=== PATIENT | male | born 1950 | race African-American/Black ===

== ENCOUNTER 2022-10-06 13:16 | Inpatient (IN) | payer OTHER, BC ==
[2022-10-06 13:21] VITALS: BMI 37.2
[2022-10-06] MEDS ORDERED: MEROPENEM 500 MG in DEXTROSE 5%-WATER 100 ML IVPB ONE (14:23)
[2022-10-06] MEDS ORDERED: VANCOMYCIN 1 GM in D5W (PRE-DOCKED) 1,000 MG/250 ML (RESTRICTED TO ID ONLY IVPB ONE (14:24)
[2022-10-06] MEDS ORDERED: MEROPENEM 500 MG VIAL (RESTRICTED TO ID) IVPB ONE (14:43)
[2022-10-06] MEDS ORDERED: VANCOMYCIN/WATER FOR INJ (PEG) 1,000 MG/200 ML BAG IVPB ONE (14:43)
[2022-10-06 15:32] LABS: BASO % 0.5 % (0-2.0); HEMATOCRIT 30.8 % (35.4-49); HEMOGLOBIN 9.9 GM/dL (11.7-16.9); LYMPH % 29.2 % (8-40); MCH 30.1 pg (25.7-33.7); MCHC 32.1 g/dl (32.0-35.9); MEAN CELL VOLUME 93.9 fl (80-96); MEAN PLT VOLUME 6.9 fl (7.5-11.1); MONO % 10.4 % (3.8-10.2); NEUT % 57.9 % (42.8-82.8); PLATELET COUNT 183 10^3/uL (134-434); RBC 3.28 M/mm3 (4.00-5.60); RDW 13.1 % (11.9-15.9); WHITE BLOOD COUNT 3.8 K/mm3 (4.0-10.0)
[2022-10-06 15:38] LABS: INR 1.44 (0.83-1.09); PROTHROMBIN TIME (PATIENT) 16.7 SEC (9.7-13.0)
[2022-10-06 15:40] LABS: ACTIVATED PTT 32.7 SECONDS (25.2-36.5)
[2022-10-06 15:50] LABS: POTASSIUM 3.4 mmol/L (3.5-5.1)
[2022-10-06 15:51] LABS: CALCIUM 9.3 mg/dL (8.5-10.1)
[2022-10-06 15:53] LABS: ALBUMIN 3.6 g/dl (3.4-5.0); BLOOD UREA NITROGEN 13.6 mg/dL (7-18)
[2022-10-06 15:56] LABS: CREATININE 1.1 mg/dL (0.55-1.3)
[2022-10-06 15:58] LABS: BILIRUBIN,TOTAL 0.6 mg/dL (0.2-1); TOT PROT 7.9 g/dl (6.4-8.2)
[2022-10-06] MEDS ORDERED: KETOROLAC TROMETHAMINE 15 MG/ML VIAL IVPUSH PRN (16:03)
[2022-10-06] MEDS ORDERED: POTASSIUM CHLORIDE TABS 20 MEQ TABLET.ER (FP) PO ONE (16:11)
[2022-10-06 16:17] LABS: ERYTHROCYTE SEDIMENTATION RATE 86 mm/hr (0-20)
[2022-10-06] MEDS ORDERED: POTASSIUM CHLORIDE ORAL LIQUID 20 MEQ/15 ML ONE (16:30)
[2022-10-06] MEDS ORDERED: SUBOXONE PO SCH (22:00)
[2022-10-06] MEDS: BUPRENORPHINE/NALOXONE 8 MG/2 MG FILM PACKET SL SCH (23:50)
[2022-10-07] MEDS: HEPARIN NA (PORCINE) 5,000 UNITS/ML 1ML VIAL SQ SCH ×3 (00:26→21:52)
[2022-10-07] MEDS: GABAPENTIN 100 MG CAPSULE PO SCH ×4 (00:26→21:52)
[2022-10-07] MEDS: ATORVASTATIN CA 10 MG TABLET (FP) PO SCH ×2 (00:26→21:52)
[2022-10-07] MEDS: MEROPENEM 1 GM in DEXTROSE 5%-WATER 100 ML IVPB SCH ×5 (03:25→18:09)
[2022-10-07] MEDS ORDERED: VANCOMYCIN 1 GM/200 ML PREMIX BAG (RESTRICTED TO ID ONLY) IVPB SCH (03:30)
[2022-10-07] MEDS: FUROSEMIDE 40 MG TABLET (FP) PO SCH ×2 (06:55→13:07)
[2022-10-07] MEDS: BUPRENORPHINE/NALOXONE 8 MG/2 MG FILM PACKET SL SCH ×3 (06:55→21:52)
[2022-10-07 09:07] LABS: HEMATOCRIT 34.8 % (35.4-49); HEMOGLOBIN 11.1 GM/dL (11.7-16.9); MCHC 31.9 g/dl (32.0-35.9); MEAN PLT VOLUME 7.8 fl (7.5-11.1); PLATELET COUNT 214 10^3/uL (134-434); RDW 13.3 % (11.9-15.9)
[2022-10-07 09:13] LABS: WHITE BLOOD COUNT 7.1 K/mm3 (4.0-10.0)
[2022-10-07 09:29] LABS: POTASSIUM 3.7 mmol/L (3.5-5.1)
[2022-10-07 09:35] LABS: BLOOD UREA NITROGEN 14.3 mg/dL (7-18); CALCIUM 9.3 mg/dL (8.5-10.1)
[2022-10-07 09:39] LABS: CREATININE 1.1 mg/dL (0.55-1.3)
[2022-10-07] MEDS: ASPIRIN 81 MG CHEWABLE TABLETS PO SCH (09:57)
[2022-10-07] MEDS: NIFEdipine E.R 60 MG TABLET PO SCH (09:57)
[2022-10-07] MEDS: ATENOLOL 50 MG TABLET (FP) PO SCH (09:57)
[2022-10-07] MEDS: COLLAGENASE CLOSTRIDIUM HIST. 30 GRAMS TUBE TP SCH (09:58)
[2022-10-07] MEDS ORDERED: VANCOMYCIN 1 GM in D5W (PRE-DOCKED) 1,000 MG/250 ML (RESTRICTED TO ID ONLY IVPB SCH (10:00)
[2022-10-07] MEDS ORDERED: ABACAVIR/DOLUTEGRAVIR/LAMIVUDI (TRIUMEQ) TABLET PO SCH (10:00)
[2022-10-07] MEDS ORDERED: CELECOXIB 200 MG CAPSULE PO SCH (10:00)
[2022-10-07 10:13] LABS: ANISOCYTOSIS 1+; MACROCYTOSIS 0
[2022-10-07] MEDS: VANCOMYCIN PREMIX 1.5 GM 1,500 MG/300 ML BAG IVPB SCH (14:53)
[2022-10-07] MEDS ORDERED: PIPERACILLIN/TAZOB 3.375 GM 3.375 GM in DEXTROSE 5%-WATER - 50 ML IVPB SCH (18:00)
[2022-10-08] MEDS: MEROPENEM 1 GM in DEXTROSE 5%-WATER 100 ML IVPB SCH ×3 (02:50→19:00)
[2022-10-08] MEDS: BUPRENORPHINE/NALOXONE 8 MG/2 MG FILM PACKET SL SCH ×3 (05:50→22:42)
[2022-10-08] MEDS: GABAPENTIN 100 MG CAPSULE PO SCH ×3 (05:50→22:42)
[2022-10-08] MEDS: FUROSEMIDE 40 MG TABLET (FP) PO SCH ×2 (05:50→14:47)
[2022-10-08 09:31] LABS: HEMOGLOBIN 10.2 GM/dL (11.7-16.9); MEAN CELL VOLUME 93.8 fl (80-96); MEAN PLT VOLUME 7.2 fl (7.5-11.1); PLATELET COUNT 203 10^3/uL (134-434); RBC 3.42 M/mm3 (4.00-5.60); RDW 12.9 % (11.9-15.9); WHITE BLOOD COUNT 4.9 K/mm3 (4.0-10.0)
[2022-10-08 10:11] LABS: POTASSIUM 3.7 mmol/L (3.5-5.1)
[2022-10-08 10:14] LABS: BLOOD UREA NITROGEN 18.6 mg/dL (7-18); CALCIUM 9.2 mg/dL (8.5-10.1)
[2022-10-08 10:16] LABS: ALBUMIN 3.3 g/dl (3.4-5.0)
[2022-10-08 10:19] LABS: BILIRUBIN,TOTAL 0.7 mg/dL (0.2-1); CREATININE 1.3 mg/dL (0.55-1.3); TOT PROT 7.4 g/dl (6.4-8.2)
[2022-10-08] MEDS: HEPARIN NA (PORCINE) 5,000 UNITS/ML 1ML VIAL SQ SCH ×2 (10:48→22:42)
[2022-10-08] MEDS: ASPIRIN 81 MG CHEWABLE TABLETS PO SCH (11:48)
[2022-10-08] MEDS: NIFEdipine E.R 60 MG TABLET PO SCH (11:49)
[2022-10-08] MEDS: TAMSULOSIN HCL 0.4 MG CAP PO SCH (11:49)
[2022-10-08] MEDS: ATENOLOL 50 MG TABLET (FP) PO SCH (11:49)
[2022-10-08] MEDS: COLLAGENASE CLOSTRIDIUM HIST. 30 GRAMS TUBE TP SCH (11:49)
[2022-10-08] MEDS: VANCOMYCIN PREMIX 1.5 GM 1,500 MG/300 ML BAG IVPB SCH (18:15)
[2022-10-08] MEDS: ABACAVIR/DOLUTEGRAVIR/LAMIVUDI (TRIUMEQ) TABLET PO SCH (22:42)
[2022-10-08] MEDS: ATORVASTATIN CA 10 MG TABLET (FP) PO SCH (22:42)
[2022-10-09] MEDS: MEROPENEM 1 GM in DEXTROSE 5%-WATER 100 ML IVPB SCH ×3 (02:37→19:08)
[2022-10-09] MEDS: GABAPENTIN 100 MG CAPSULE PO SCH ×3 (06:30→22:03)
[2022-10-09] MEDS: BUPRENORPHINE/NALOXONE 8 MG/2 MG FILM PACKET SL SCH ×3 (06:30→22:03)
[2022-10-09] MEDS: FUROSEMIDE 40 MG TABLET (FP) PO SCH ×2 (06:30→13:41)
[2022-10-09] MEDS: NIFEdipine E.R 60 MG TABLET PO SCH (09:04)
[2022-10-09] MEDS: ASPIRIN 81 MG CHEWABLE TABLETS PO SCH (09:04)
[2022-10-09] MEDS: ATENOLOL 50 MG TABLET (FP) PO SCH (09:05)
[2022-10-09] MEDS: HEPARIN NA (PORCINE) 5,000 UNITS/ML 1ML VIAL SQ SCH ×2 (09:08→22:02)
[2022-10-09] MEDS: TAMSULOSIN HCL 0.4 MG CAP PO SCH (09:08)
[2022-10-09] MEDS: COLLAGENASE CLOSTRIDIUM HIST. 30 GRAMS TUBE TP SCH (09:18)
[2022-10-09 11:44] LABS: HEMATOCRIT 31.1 % (35.4-49); HEMOGLOBIN 10.1 GM/dL (11.7-16.9); MCH 29.8 pg (25.7-33.7); MCHC 32.6 g/dl (32.0-35.9); MEAN CELL VOLUME 91.6 fl (80-96); MEAN PLT VOLUME 7.1 fl (7.5-11.1); PLATELET COUNT 164 10^3/uL (134-434); RBC 3.39 M/mm3 (4.00-5.60); RDW 13.5 % (11.9-15.9)
[2022-10-09 12:13] LABS: POTASSIUM 3.5 mmol/L (3.5-5.1)
[2022-10-09 12:15] LABS: CALCIUM 8.9 mg/dL (8.5-10.1)
[2022-10-09 12:17] LABS: ALBUMIN 3.2 g/dl (3.4-5.0); BLOOD UREA NITROGEN 18.6 mg/dL (7-18)
[2022-10-09 12:18] LABS: CREATININE 1.3 mg/dL (0.55-1.3)
[2022-10-09 12:20] LABS: BILIRUBIN,TOTAL 0.5 mg/dL (0.2-1); TOT PROT 7.3 g/dl (6.4-8.2)
[2022-10-09] MEDS: VANCOMYCIN PREMIX 1.5 GM 1,500 MG/300 ML BAG IVPB SCH (14:13)
[2022-10-09] MEDS: ATORVASTATIN CA 10 MG TABLET (FP) PO SCH (22:03)
[2022-10-09] MEDS: MELATONIN 5 MG TABLETS PO SCH (22:03)
[2022-10-09] MEDS: ABACAVIR/DOLUTEGRAVIR/LAMIVUDI (TRIUMEQ) TABLET PO SCH (22:04)
[2022-10-10] MEDS: MEROPENEM 1 GM in DEXTROSE 5%-WATER 100 ML IVPB SCH ×3 (02:46→18:05)
[2022-10-10] MEDS: BUPRENORPHINE/NALOXONE 8 MG/2 MG FILM PACKET SL SCH ×3 (05:52→22:29)
[2022-10-10] MEDS: GABAPENTIN 100 MG CAPSULE PO SCH ×3 (05:53→22:29)
[2022-10-10] MEDS: FUROSEMIDE 40 MG TABLET (FP) PO SCH ×2 (05:53→13:24)
[2022-10-10] MEDS: TAMSULOSIN HCL 0.4 MG CAP PO SCH (08:35)
[2022-10-10 09:24] LABS: HEMATOCRIT 32.4 % (35.4-49); HEMOGLOBIN 10.7 GM/dL (11.7-16.9); MCH 30.1 pg (25.7-33.7); MCHC 32.9 g/dl (32.0-35.9); MEAN CELL VOLUME 91.4 fl (80-96); MEAN PLT VOLUME 7.1 fl (7.5-11.1); PLATELET COUNT 179 10^3/uL (134-434); RBC 3.54 M/mm3 (4.00-5.60); RDW 13.4 % (11.9-15.9); WHITE BLOOD COUNT 4.6 K/mm3 (4.0-10.0)
[2022-10-10 09:29] LABS: POTASSIUM 3.6 mmol/L (3.5-5.1)
[2022-10-10 09:33] LABS: BLOOD UREA NITROGEN 22.3 mg/dL (7-18); CALCIUM 9.2 mg/dL (8.5-10.1)
[2022-10-10 09:37] LABS: CREATININE 1.4 mg/dL (0.55-1.3)
[2022-10-10] MEDS: ASPIRIN 81 MG CHEWABLE TABLETS PO SCH (10:16)
[2022-10-10] MEDS: ATENOLOL 50 MG TABLET (FP) PO SCH (10:16)
[2022-10-10] MEDS: HEPARIN NA (PORCINE) 5,000 UNITS/ML 1ML VIAL SQ SCH ×2 (10:17→22:28)
[2022-10-10] MEDS: NIFEdipine E.R 60 MG TABLET PO SCH (10:17)
[2022-10-10] MEDS: COLLAGENASE CLOSTRIDIUM HIST. 30 GRAMS TUBE TP SCH (10:17)
[2022-10-10] MEDS: VANCOMYCIN PREMIX 1.5 GM 1,500 MG/300 ML BAG IVPB SCH (15:07)
[2022-10-10] MEDS: ATORVASTATIN CA 10 MG TABLET (FP) PO SCH (22:28)
[2022-10-10] MEDS: MELATONIN 5 MG TABLETS PO SCH (22:29)
[2022-10-10] MEDS: ABACAVIR/DOLUTEGRAVIR/LAMIVUDI (TRIUMEQ) TABLET PO SCH (22:29)
[2022-10-11] MEDS: MEROPENEM 1 GM in DEXTROSE 5%-WATER 100 ML IVPB SCH ×3 (02:00→17:49)
[2022-10-11] MEDS: GABAPENTIN 100 MG CAPSULE PO SCH ×3 (05:40→22:24)
[2022-10-11] MEDS: FUROSEMIDE 40 MG TABLET (FP) PO SCH ×2 (05:40→13:47)
[2022-10-11] MEDS: BUPRENORPHINE/NALOXONE 8 MG/2 MG FILM PACKET SL SCH ×3 (05:40→22:24)
[2022-10-11] MEDS: ASPIRIN 81 MG CHEWABLE TABLETS PO SCH (09:09)
[2022-10-11] MEDS: TAMSULOSIN HCL 0.4 MG CAP PO SCH (09:09)
[2022-10-11] MEDS: HEPARIN NA (PORCINE) 5,000 UNITS/ML 1ML VIAL SQ SCH ×2 (09:58→22:24)
[2022-10-11] MEDS: NIFEdipine E.R 60 MG TABLET PO SCH (10:00)
[2022-10-11] MEDS: ATENOLOL 50 MG TABLET (FP) PO SCH (10:00)
[2022-10-11 10:40] LABS: POTASSIUM 3.6 mmol/L (3.5-5.1)
[2022-10-11 10:43] LABS: BLOOD UREA NITROGEN 29.2 mg/dL (7-18); CALCIUM 9.6 mg/dL (8.5-10.1)
[2022-10-11 10:47] LABS: CREATININE 1.6 mg/dL (0.55-1.3)
[2022-10-11] MEDS: LIDOCAINE 5% TOPICAL PATCH TP SCH (11:37)
[2022-10-11] MEDS: COLLAGENASE CLOSTRIDIUM HIST. 30 GRAMS TUBE TP SCH (11:40)
[2022-10-11] MEDS: ATORVASTATIN CA 10 MG TABLET (FP) PO SCH (22:23)
[2022-10-11] MEDS: MELATONIN 5 MG TABLETS PO SCH (22:23)
[2022-10-11] MEDS: ABACAVIR/DOLUTEGRAVIR/LAMIVUDI (TRIUMEQ) TABLET PO SCH (22:24)
[2022-10-11] MEDS: LIDOCAINE PATCH REMOVAL MC SCH (22:30)
[2022-10-12] MEDS: MEROPENEM 1 GM in DEXTROSE 5%-WATER 100 ML IVPB SCH ×3 (02:02→18:25)
[2022-10-12] MEDS: GABAPENTIN 100 MG CAPSULE PO SCH ×3 (06:03→21:59)
[2022-10-12] MEDS: BUPRENORPHINE/NALOXONE 8 MG/2 MG FILM PACKET SL SCH ×3 (06:03→22:00)
[2022-10-12] MEDS: LIDOCAINE 5% TOPICAL PATCH TP SCH (10:01)
[2022-10-12] MEDS: HEPARIN NA (PORCINE) 5,000 UNITS/ML 1ML VIAL SQ SCH ×2 (10:02→22:01)
[2022-10-12] MEDS: ASPIRIN 81 MG CHEWABLE TABLETS PO SCH (10:02)
[2022-10-12] MEDS: NIFEdipine E.R 60 MG TABLET PO SCH (10:03)
[2022-10-12] MEDS: TAMSULOSIN HCL 0.4 MG CAP PO SCH (10:03)
[2022-10-12] MEDS: ATENOLOL 50 MG TABLET (FP) PO SCH (10:03)
[2022-10-12] MEDS: COLLAGENASE CLOSTRIDIUM HIST. 30 GRAMS TUBE TP SCH (11:04)
[2022-10-12] MEDS ORDERED: VANCOMYCIN 500 MG in DEXTROSE 5%-WATER 100 ML IVPB ONE (13:30)
[2022-10-12] MEDS: MELATONIN 5 MG TABLETS PO SCH (21:59)
[2022-10-12] MEDS: ATORVASTATIN CA 10 MG TABLET (FP) PO SCH (22:00)
[2022-10-12] MEDS: ABACAVIR/DOLUTEGRAVIR/LAMIVUDI (TRIUMEQ) TABLET PO SCH (22:00)
[2022-10-12] MEDS: LIDOCAINE PATCH REMOVAL MC SCH (22:01)
[2022-10-13] MEDS: MEROPENEM 1 GM in DEXTROSE 5%-WATER 100 ML IVPB SCH ×4 (02:54→19:14)
[2022-10-13] MEDS: GABAPENTIN 100 MG CAPSULE PO SCH ×3 (05:47→22:12)
[2022-10-13] MEDS: BUPRENORPHINE/NALOXONE 8 MG/2 MG FILM PACKET SL SCH ×3 (05:48→22:19)
[2022-10-13] MEDS: TAMSULOSIN HCL 0.4 MG CAP PO SCH (09:09)
[2022-10-13] MEDS: NIFEdipine E.R 60 MG TABLET PO SCH (09:09)
[2022-10-13] MEDS: ATENOLOL 50 MG TABLET (FP) PO SCH (09:09)
[2022-10-13] MEDS: ASPIRIN 81 MG CHEWABLE TABLETS PO SCH (09:09)
[2022-10-13] MEDS: LIDOCAINE 5% TOPICAL PATCH TP SCH (09:09)
[2022-10-13] MEDS: COLLAGENASE CLOSTRIDIUM HIST. 30 GRAMS TUBE TP SCH (09:09)
[2022-10-13 09:10] LABS: BASO % 0.4 % (0-2.0); EOS % 6.8 % (0-4.5); HEMATOCRIT 30.3 % (35.4-49); HEMOGLOBIN 9.8 GM/dL (11.7-16.9); LYMPH % 20.1 % (8-40); MCH 30.1 pg (25.7-33.7); MCHC 32.4 g/dl (32.0-35.9); MEAN CELL VOLUME 92.9 fl (80-96); MEAN PLT VOLUME 7.2 fl (7.5-11.1); MONO % 10.5 % (3.8-10.2); NEUT % 62.2 % (42.8-82.8); PLATELET COUNT 183 10^3/uL (134-434); RBC 3.26 M/mm3 (4.00-5.60); RDW 13.1 % (11.9-15.9); WHITE BLOOD COUNT 4.7 K/mm3 (4.0-10.0)
[2022-10-13] MEDS: HEPARIN NA (PORCINE) 5,000 UNITS/ML 1ML VIAL SQ SCH ×2 (09:10→22:12)
[2022-10-13 10:01] LABS: ALBUMIN 3.2 g/dl (3.4-5.0); BILIRUBIN,TOTAL 0.6 mg/dL (0.2-1); BLOOD UREA NITROGEN 25.9 mg/dL (7-18); CALCIUM 9.6 mg/dL (8.5-10.1); CREATININE 1.3 mg/dL (0.55-1.3); POTASSIUM 3.5 mmol/L (3.5-5.1); TOT PROT 7.5 g/dl (6.4-8.2)
[2022-10-13] MEDS: VANCOMYCIN/WATER 1250 MG 1,250 MG/250 ML BAG IVPB SCH (12:34)
[2022-10-13] MEDS: ATORVASTATIN CA 10 MG TABLET (FP) PO SCH (22:11)
[2022-10-13] MEDS: MELATONIN 5 MG TABLETS PO SCH (22:11)
[2022-10-13] MEDS: LIDOCAINE PATCH REMOVAL MC SCH (22:19)
[2022-10-13] MEDS: ABACAVIR/DOLUTEGRAVIR/LAMIVUDI (TRIUMEQ) TABLET PO SCH (22:30)
[2022-10-14] MEDS: MEROPENEM 1 GM in DEXTROSE 5%-WATER 100 ML IVPB SCH ×3 (03:39→18:18)
[2022-10-14] MEDS: BUPRENORPHINE/NALOXONE 8 MG/2 MG FILM PACKET SL SCH ×3 (06:39→22:32)
[2022-10-14] MEDS: GABAPENTIN 100 MG CAPSULE PO SCH ×3 (06:39→22:32)
[2022-10-14] MEDS: TAMSULOSIN HCL 0.4 MG CAP PO SCH (08:29)
[2022-10-14] MEDS: HEPARIN NA (PORCINE) 5,000 UNITS/ML 1ML VIAL SQ SCH ×2 (09:01→22:32)
[2022-10-14] MEDS: ASPIRIN 81 MG CHEWABLE TABLETS PO SCH (09:01)
[2022-10-14] MEDS: LIDOCAINE 5% TOPICAL PATCH TP SCH (09:01)
[2022-10-14] MEDS: NIFEdipine E.R 60 MG TABLET PO SCH (09:02)
[2022-10-14] MEDS: ATENOLOL 50 MG TABLET (FP) PO SCH (09:02)
[2022-10-14 09:30] LABS: BASO % 0.6 % (0-2.0); EOS % 6.3 % (0-4.5); HEMATOCRIT 29.1 % (35.4-49); HEMOGLOBIN 9.3 GM/dL (11.7-16.9); LYMPH % 24.5 % (8-40); MEAN CELL VOLUME 93.6 fl (80-96); MEAN PLT VOLUME 7.6 fl (7.5-11.1); MONO % 9.6 % (3.8-10.2); PLATELET COUNT 149 10^3/uL (134-434); RBC 3.11 M/mm3 (4.00-5.60); WHITE BLOOD COUNT 3.7 K/mm3 (4.0-10.0)
[2022-10-14 10:20] LABS: POTASSIUM 3.3 mmol/L (3.5-5.1)
[2022-10-14] MEDS: COLLAGENASE CLOSTRIDIUM HIST. 30 GRAMS TUBE TP SCH (10:25)
[2022-10-14 10:28] LABS: BLOOD UREA NITROGEN 23.6 mg/dL (7-18); CALCIUM 9.3 mg/dL (8.5-10.1)
[2022-10-14] MEDS: VANCOMYCIN/WATER 1250 MG 1,250 MG/250 ML BAG IVPB SCH (11:48)
[2022-10-14] MEDS ORDERED: POTASSIUM CHLORIDE TABS 20 MEQ TABLET.ER (FP) PO ONE (17:27)
[2022-10-14] MEDS: ATORVASTATIN CA 10 MG TABLET (FP) PO SCH (22:32)
[2022-10-14] MEDS: MELATONIN 5 MG TABLETS PO SCH (22:32)
[2022-10-14] MEDS: LIDOCAINE PATCH REMOVAL MC SCH (22:36)
[2022-10-14] MEDS: ABACAVIR/DOLUTEGRAVIR/LAMIVUDI (TRIUMEQ) TABLET PO SCH (23:01)
[2022-10-15] MEDS: ACETAMINOPHEN 325 MG TABLET (FP) PO PRN ×3 (01:13→21:40)
[2022-10-15] MEDS: MEROPENEM 1 GM in DEXTROSE 5%-WATER 100 ML IVPB SCH ×3 (01:14→18:11)
[2022-10-15] MEDS: GABAPENTIN 100 MG CAPSULE PO SCH ×3 (07:08→21:39)
[2022-10-15] MEDS: BUPRENORPHINE/NALOXONE 8 MG/2 MG FILM PACKET SL SCH ×3 (07:08→21:41)
[2022-10-15 10:36] LABS: BASO % 0.4 % (0-2.0); EOS % 5.5 % (0-4.5); HEMATOCRIT 29.7 % (35.4-49); HEMOGLOBIN 9.5 GM/dL (11.7-16.9); LYMPH % 27.7 % (8-40); MCHC 31.9 g/dl (32.0-35.9); MEAN CELL VOLUME 94.1 fl (80-96); MEAN PLT VOLUME 7.7 fl (7.5-11.1); NEUT % 57.4 % (42.8-82.8); PLATELET COUNT 149 10^3/uL (134-434); RBC 3.15 M/mm3 (4.00-5.60); RDW 12.9 % (11.9-15.9)
[2022-10-15] MEDS: HEPARIN NA (PORCINE) 5,000 UNITS/ML 1ML VIAL SQ SCH ×2 (10:52→21:39)
[2022-10-15] MEDS: LIDOCAINE 5% TOPICAL PATCH TP SCH (10:53)
[2022-10-15] MEDS: TAMSULOSIN HCL 0.4 MG CAP PO SCH (10:53)
[2022-10-15] MEDS: ASPIRIN 81 MG CHEWABLE TABLETS PO SCH (10:53)
[2022-10-15] MEDS: NIFEdipine E.R 60 MG TABLET PO SCH (10:53)
[2022-10-15] MEDS: ATENOLOL 50 MG TABLET (FP) PO SCH (10:53)
[2022-10-15] MEDS: COLLAGENASE CLOSTRIDIUM HIST. 30 GRAMS TUBE TP SCH (10:57)
[2022-10-15 11:08] LABS: POTASSIUM 3.7 mmol/L (3.5-5.1)
[2022-10-15 11:25] LABS: CALCIUM 9.3 mg/dL (8.5-10.1)
[2022-10-15 11:26] LABS: BLOOD UREA NITROGEN 19.2 mg/dL (7-18)
[2022-10-15] MEDS: VANCOMYCIN/WATER 1250 MG 1,250 MG/250 ML BAG IVPB SCH (12:16)
[2022-10-15] MEDS: MELATONIN 5 MG TABLETS PO SCH (21:39)
[2022-10-15] MEDS: ATORVASTATIN CA 10 MG TABLET (FP) PO SCH (21:39)
[2022-10-15] MEDS: ABACAVIR/DOLUTEGRAVIR/LAMIVUDI (TRIUMEQ) TABLET PO SCH (21:42)
[2022-10-15] MEDS: LIDOCAINE PATCH REMOVAL MC SCH (21:42)
[2022-10-16] MEDS: MEROPENEM 1 GM in DEXTROSE 5%-WATER 100 ML IVPB SCH ×2 (02:15→10:00)
[2022-10-16 04:43] VITALS: RESP 18
[2022-10-16] MEDS: GABAPENTIN 100 MG CAPSULE PO SCH ×2 (05:40→13:51)
[2022-10-16] MEDS: ACETAMINOPHEN 325 MG TABLET (FP) PO PRN ×2 (05:41→12:53)
[2022-10-16] MEDS: BUPRENORPHINE/NALOXONE 8 MG/2 MG FILM PACKET SL SCH ×2 (05:42→13:51)
[2022-10-16] MEDS: TAMSULOSIN HCL 0.4 MG CAP PO SCH (09:31)
[2022-10-16] MEDS: ASPIRIN 81 MG CHEWABLE TABLETS PO SCH (09:32)
[2022-10-16] MEDS: ATENOLOL 50 MG TABLET (FP) PO SCH (09:32)
[2022-10-16] MEDS: HEPARIN NA (PORCINE) 5,000 UNITS/ML 1ML VIAL SQ SCH (09:32)
[2022-10-16] MEDS: NIFEdipine E.R 60 MG TABLET PO SCH (09:32)
[2022-10-16] MEDS: LIDOCAINE 5% TOPICAL PATCH TP SCH (09:43)
[2022-10-16] MEDS: COLLAGENASE CLOSTRIDIUM HIST. 30 GRAMS TUBE TP SCH (12:28)
[2022-10-16] MEDS: VANCOMYCIN/WATER 1250 MG 1,250 MG/250 ML BAG IVPB SCH (12:36)
[2022-10-16 15:05] VITALS: BP 131/74; PULSE 75; TEMP 98
[2022-10-16] MEDS ORDERED: FUROSEMIDE 40 MG TABLET (FP) PO ONE (15:55)
[2022-10-17] MEDS ORDERED: FUROSEMIDE 40 MG TABLET (FP) PO SCH (06:00)
== END 2022-10-16 16:19 | disposition home or self-care (01) | DRG 554 ==
LOC: JER 13:16 → JERBED 15:32 → J6S 18:21
PROVIDERS: ADMIT Internal Medicine; ATTEND Internal Medicine
PROC: 05HF33Z Insertion of Infusion Device into Left Cephalic Vein, Percutaneous Approach (ICD-10-PCS; principal; 2022-10-14)
DX: M87.871 Other osteonecrosis, right ankle (principal); B20 Human immunodeficiency virus [HIV] disease; F11.20 Opioid dependence, uncomplicated; N17.9 Acute kidney failure, unspecified; L97.519 Non-pressure chronic ulcer of other part of right foot with unspecified severity; N18.9 Chronic kidney disease, unspecified; I73.9 Peripheral vascular disease, unspecified; B35.3 Tinea pedis; I13.10 Hypertensive heart and chronic kidney disease without heart failure, with stage 1 through stage 4 chronic kidney disease, or unspecified chronic kidney disease; E78.5 Hyperlipidemia, unspecified; D64.9 Anemia, unspecified; I89.0 Lymphedema, not elsewhere classified; E66.9 Obesity, unspecified; Z68.37 Body mass index [BMI] 37.0-37.9, adult
CPT/HCPCS: 36415; 73200-TC-RT; 73610-TC-RT-FY; 73630-TC-RT-FY; 73718-TC-RT; 73721-RT-TC; 80048; 80053; 82607; 82728; 82746; 83036; 83540; 83550; 85025; 85027; 85610; 85651; 85730; 86140; 86850; 86900; 86901; 87040; 93005; 93010; 93926-TC; 93970-TC; 99285-25; A6197; G0463-25; G0480; J1644

== ENCOUNTER 2023-01-01 09:18 | Inpatient (IN) | payer OTHER, BC ==
[2023-01-01 09:31] VITALS: BMI 32.5
[2023-01-01] MEDS ORDERED: ACETAMINOPHEN 1000 MG/100 ML BAG IVPB ONE (10:44)
[2023-01-01] MEDS ORDERED: VANCOMYCIN 1,000 MG in DEXTROSE 5%-WATER - 250 ML IVPB ONE (10:45)
[2023-01-01] MEDS ORDERED: CEFEPIME HCL 1 GM VIAL (RESTRICTED TO ID) IVPB ONE (10:46)
[2023-01-01] MEDS ORDERED: ACETAMINOPHEN INJECTION 100 ML IVPB ONE ×2 (12:19→16:24)
[2023-01-01] MEDS ORDERED: VANCOMYCIN 1 GRAM (PRE-DOCKED) 1,000 MG/250 ML BAG IVPB ONE (12:19)
[2023-01-01] MEDS ORDERED: CEFEPIME 1 GM/100 ML BAG IVPB ONE (12:20)
[2023-01-01 12:31] LABS: BASO % 0.4 % (0-2.0); EOS % 0.7 % (0-4.5); HEMATOCRIT 26.9 % (35.4-49); HEMOGLOBIN 8.7 GM/dL (11.7-16.9); LYMPH % 19.9 % (8-40); MCH 30.7 pg (25.7-33.7); MCHC 32.5 g/dl (32.0-35.9); MEAN CELL VOLUME 94.4 fl (80-96); MEAN PLT VOLUME 6.5 fl (7.5-11.1); MONO % 11.3 % (3.8-10.2); NEUT % 67.7 % (42.8-82.8); PLATELET COUNT 188 10^3/uL (134-434); RBC 2.85 M/mm3 (4.00-5.60); RDW 14.9 % (11.9-15.9)
[2023-01-01 12:36] LABS: INR 1.15 (0.83-1.09); PROTHROMBIN TIME (PATIENT) 13.3 SEC (9.7-13.0)
[2023-01-01 12:38] LABS: ACTIVATED PTT 27.3 SECONDS (25.2-36.5)
[2023-01-01 12:59] LABS: POTASSIUM 3.9 mmol/L (3.5-5.1)
[2023-01-01 13:01] LABS: ALBUMIN 2.9 g/dl (3.4-5.0); CALCIUM 8.8 mg/dL (8.5-10.1)
[2023-01-01 13:04] LABS: CREATININE 1.3 mg/dL (0.55-1.3)
[2023-01-01 13:06] LABS: BILIRUBIN,TOTAL 0.8 mg/dL (0.2-1); TOT PROT 7.6 g/dl (6.4-8.2)
[2023-01-01] MEDS ORDERED: CLINDAMYCIN 600MG PREMIX IVPB 600 MG/50 ML BAG IVPB ONE ×2 (13:09→13:15)
[2023-01-01] MEDS ORDERED: diphenhydrAMINE HCL 25 MG CAPSULE (FP) PO ONE ×2 (13:11→13:15)
[2023-01-01] MEDS ORDERED: VANCOMYCIN HCL 1,500 MG in DEXTROSE 5%-WATER - 250 ML IVPB SCH (14:30)
[2023-01-01] MEDS ORDERED: FUROSEMIDE 40 MG/4 ML INJECTABLE VIAL ONE (16:15)
[2023-01-01] MEDS: FUROSEMIDE 40 MG/4 ML INJECTABLE VIAL IVPUSH SCH (16:22)
[2023-01-01] MEDS: ACETAMINOPHEN 1000 MG/100 ML BAG IVPB PRN ×2 (16:28→23:29)
[2023-01-01] MEDS ORDERED: MEROPENEM 1 GM in DEXTROSE 5%-WATER 100 ML IVPB SCH (18:00)
[2023-01-01] MEDS ORDERED: MEROPENEM 1 GM VIAL (RESTRICTED TO ID) IVPB ONE (18:35)
[2023-01-01] MEDS ORDERED: oxyCODONE HCL 5 MG TABLET PO PRN (18:38)
[2023-01-01] MEDS ORDERED: morphine SULFATE 4 MG/ML VIAL IVPUSH PRN (18:41)
[2023-01-01] MEDS ORDERED: oxyCODONE HCL 5 MG TABLET ONE (18:44)
[2023-01-01] MEDS: MEROPENEM 1 GM in DEXTROSE 5%-WATER 100 ML IVPB SCH (18:58)
[2023-01-01] MEDS: HEPARIN NA (PORCINE) 5,000 UNITS/ML 1ML VIAL SQ SCH (21:57)
[2023-01-01] MEDS: ATORVASTATIN CA 10 MG TABLET (FP) PO SCH (21:58)
[2023-01-01] MEDS: BUPRENORPHINE/NALOXONE 8 MG/2 MG FILM PACKET SL SCH (21:58)
[2023-01-01] MEDS ORDERED: APIXABAN 5 MG TABLET PO SCH (22:00)
[2023-01-02] MEDS ORDERED: VANCOMYCIN PREMIX 1.5 GM 1,500 MG/300 ML BAG IVPB SCH (01:00)
[2023-01-02] MEDS: MEROPENEM 1 GM in DEXTROSE 5%-WATER 100 ML IVPB SCH ×3 (02:16→17:41)
[2023-01-02] MEDS: BUPRENORPHINE/NALOXONE 8 MG/2 MG FILM PACKET SL SCH ×4 (05:45→21:32)
[2023-01-02] MEDS: FUROSEMIDE 40 MG/4 ML INJECTABLE VIAL IVPUSH SCH (05:45)
[2023-01-02] MEDS: HEPARIN NA (PORCINE) 5,000 UNITS/ML 1ML VIAL SQ SCH ×3 (05:45→21:32)
[2023-01-02] MEDS ORDERED: FUROSEMIDE 40 MG TABLET (FP) PO SCH (06:00)
[2023-01-02] MEDS: TAMSULOSIN HCL 0.4 MG CAP PO SCH (09:20)
[2023-01-02] MEDS: NIFEdipine E.R 60 MG TABLET PO SCH (09:20)
[2023-01-02] MEDS: ATENOLOL 50 MG TABLET (FP) PO SCH (09:20)
[2023-01-02] MEDS: ASPIRIN 81 MG CHEWABLE TABLETS PO SCH (09:20)
[2023-01-02 09:38] LABS: BASO % 0.2 % (0-2.0); EOS % 2.7 % (0-4.5); HEMATOCRIT 29.8 % (35.4-49); HEMOGLOBIN 9.7 GM/dL (11.7-16.9); LYMPH % 19.2 % (8-40); MCH 30.3 pg (25.7-33.7); MCHC 32.5 g/dl (32.0-35.9); MEAN CELL VOLUME 93.3 fl (80-96); MEAN PLT VOLUME 6.5 fl (7.5-11.1); MONO % 6.1 % (3.8-10.2); NEUT % 71.8 % (42.8-82.8); PLATELET COUNT 198 10^3/uL (134-434); RDW 14.8 % (11.9-15.9)
[2023-01-02] MEDS: ABACAVIR/DOLUTEGRAVIR/LAMIVUDI (TRIUMEQ) TABLET PO SCH (09:55)
[2023-01-02 09:57] LABS: POTASSIUM 3.8 mmol/L (3.5-5.1)
[2023-01-02 10:00] LABS: CALCIUM 8.6 mg/dL (8.5-10.1)
[2023-01-02 10:01] LABS: ALBUMIN 2.8 g/dl (3.4-5.0); BLOOD UREA NITROGEN 13.9 mg/dL (7-18); MAGNESIUM 1.7 mg/dL (1.8-2.4)
[2023-01-02 10:03] LABS: PHOSPHOROUS 3.6 mg/dL (2.5-4.9)
[2023-01-02 10:04] LABS: CREATININE 1.1 mg/dL (0.55-1.3)
[2023-01-02 10:05] LABS: TOT PROT 7.7 g/dl (6.4-8.2)
[2023-01-02 10:11] LABS: BILIRUBIN,TOTAL 0.5 mg/dL (0.2-1)
[2023-01-02] MEDS: KETOROLAC TROMETHAMINE 30 MG/1 ML VIAL IVPUSH PRN ×3 (10:46→21:32)
[2023-01-02 12:13] LABS: ERYTHROCYTE SEDIMENTATION RATE 101 mm/hr (0-20)
[2023-01-02] MEDS: ATORVASTATIN CA 10 MG TABLET (FP) PO SCH (21:32)
[2023-01-03] MEDS ORDERED: diphenhydrAMINE HCL 25 MG CAPSULE (FP) PO ONE ×2 (00:48→22:22)
[2023-01-03] MEDS: MEROPENEM 1 GM in DEXTROSE 5%-WATER 100 ML IVPB SCH ×3 (01:35→17:37)
[2023-01-03] MEDS: HEPARIN NA (PORCINE) 5,000 UNITS/ML 1ML VIAL SQ SCH ×3 (05:50→21:08)
[2023-01-03] MEDS: BUPRENORPHINE/NALOXONE 8 MG/2 MG FILM PACKET SL SCH ×3 (05:51→21:08)
[2023-01-03 09:20] LABS: BASO % 0.3 % (0-2.0); EOS % 3.9 % (0-4.5); HEMATOCRIT 29.3 % (35.4-49); HEMOGLOBIN 9.9 GM/dL (11.7-16.9); LYMPH % 25.9 % (8-40); MCHC 33.7 g/dl (32.0-35.9); MEAN CELL VOLUME 91.9 fl (80-96); MEAN PLT VOLUME 6.4 fl (7.5-11.1); MONO % 7.8 % (3.8-10.2); NEUT % 62.1 % (42.8-82.8); PLATELET COUNT 213 10^3/uL (134-434); RBC 3.19 M/mm3 (4.00-5.60); RDW 14.8 % (11.9-15.9)
[2023-01-03 09:39] LABS: POTASSIUM 4.2 mmol/L (3.5-5.1)
[2023-01-03 09:51] LABS: CALCIUM 8.7 mg/dL (8.5-10.1)
[2023-01-03 09:52] LABS: BLOOD UREA NITROGEN 20.5 mg/dL (7-18); MAGNESIUM 1.9 mg/dL (1.8-2.4)
[2023-01-03 09:53] LABS: BILIRUBIN,TOTAL 0.4 mg/dL (0.2-1); TOT PROT 7.9 g/dl (6.4-8.2)
[2023-01-03 09:54] LABS: CREATININE 1.3 mg/dL (0.55-1.3)
[2023-01-03] MEDS: NIFEdipine E.R 60 MG TABLET PO SCH (10:44)
[2023-01-03] MEDS: ASPIRIN 81 MG CHEWABLE TABLETS PO SCH (10:44)
[2023-01-03] MEDS: ABACAVIR/DOLUTEGRAVIR/LAMIVUDI (TRIUMEQ) TABLET PO SCH (10:45)
[2023-01-03] MEDS: TAMSULOSIN HCL 0.4 MG CAP PO SCH (10:45)
[2023-01-03] MEDS: ATENOLOL 50 MG TABLET (FP) PO SCH (10:46)
[2023-01-03] MEDS: KETOROLAC TROMETHAMINE 30 MG/1 ML VIAL IVPUSH PRN (20:21)
[2023-01-03] MEDS: ATORVASTATIN CA 10 MG TABLET (FP) PO SCH (21:08)
[2023-01-03] MEDS: DAPTOMYCIN 750 MG in SODIUM CHLORIDE 50 ML IVPB SCH (22:52)
[2023-01-04] MEDS: MEROPENEM 1 GM in DEXTROSE 5%-WATER 100 ML IVPB SCH ×3 (01:39→18:57)
[2023-01-04] MEDS: HEPARIN NA (PORCINE) 5,000 UNITS/ML 1ML VIAL SQ SCH ×3 (05:15→22:57)
[2023-01-04] MEDS: BUPRENORPHINE/NALOXONE 8 MG/2 MG FILM PACKET SL SCH ×5 (05:15→22:58)
[2023-01-04] MEDS: KETOROLAC TROMETHAMINE 30 MG/1 ML VIAL IVPUSH PRN (06:37)
[2023-01-04] MEDS: ATENOLOL 50 MG TABLET (FP) PO SCH (09:04)
[2023-01-04] MEDS: ASPIRIN 81 MG CHEWABLE TABLETS PO SCH (09:04)
[2023-01-04] MEDS: NIFEdipine E.R 60 MG TABLET PO SCH (09:05)
[2023-01-04] MEDS: TAMSULOSIN HCL 0.4 MG CAP PO SCH (09:05)
[2023-01-04] MEDS: ABACAVIR/DOLUTEGRAVIR/LAMIVUDI (TRIUMEQ) TABLET PO SCH (09:10)
[2023-01-04 10:26] LABS: BASO % 0.5 % (0-2.0); EOS % 4.1 % (0-4.5); HEMATOCRIT 27.5 % (35.4-49); HEMOGLOBIN 9.2 GM/dL (11.7-16.9); LYMPH % 31.2 % (8-40); MCH 30.8 pg (25.7-33.7); MCHC 33.5 g/dl (32.0-35.9); MEAN CELL VOLUME 92.1 fl (80-96); MEAN PLT VOLUME 6.7 fl (7.5-11.1); NEUT % 54.2 % (42.8-82.8); PLATELET COUNT 213 10^3/uL (134-434); RBC 2.99 M/mm3 (4.00-5.60); RDW 14.7 % (11.9-15.9); WHITE BLOOD COUNT 3.5 K/mm3 (4.0-10.0)
[2023-01-04 10:39] LABS: POTASSIUM 3.7 mmol/L (3.5-5.1)
[2023-01-04 10:49] LABS: CALCIUM 8.8 mg/dL (8.5-10.1)
[2023-01-04 10:50] LABS: ALBUMIN 2.8 g/dl (3.4-5.0); BLOOD UREA NITROGEN 22.3 mg/dL (7-18)
[2023-01-04 10:53] LABS: CREATININE 1.3 mg/dL (0.55-1.3)
[2023-01-04 10:54] LABS: TOT PROT 7.5 g/dl (6.4-8.2)
[2023-01-04 10:55] LABS: BILIRUBIN,TOTAL 0.2 mg/dL (0.2-1)
[2023-01-04] MEDS: DAPTOMYCIN 750 MG in SODIUM CHLORIDE 50 ML IVPB SCH (22:56)
[2023-01-04] MEDS: ATORVASTATIN CA 10 MG TABLET (FP) PO SCH (22:57)
[2023-01-05] MEDS: MEROPENEM 1 GM in DEXTROSE 5%-WATER 100 ML IVPB SCH ×3 (01:39→17:53)
[2023-01-05] MEDS: BUPRENORPHINE/NALOXONE 8 MG/2 MG FILM PACKET SL SCH ×3 (06:58→21:57)
[2023-01-05] MEDS: HEPARIN NA (PORCINE) 5,000 UNITS/ML 1ML VIAL SQ SCH ×3 (06:58→21:57)
[2023-01-05] MEDS: TAMSULOSIN HCL 0.4 MG CAP PO SCH (08:58)
[2023-01-05 10:05] LABS: BASO % 0.6 % (0-2.0); EOS % 2.6 % (0-4.5); HEMATOCRIT 26.9 % (35.4-49); LYMPH % 32.6 % (8-40); MCH 30.9 pg (25.7-33.7); MCHC 33.6 g/dl (32.0-35.9); MONO % 10.2 % (3.8-10.2); PLATELET COUNT 188 10^3/uL (134-434); RBC 2.92 M/mm3 (4.00-5.60); RDW 14.8 % (11.9-15.9); WHITE BLOOD COUNT 3.5 K/mm3 (4.0-10.0)
[2023-01-05 10:31] LABS: POTASSIUM 4.1 mmol/L (3.5-5.1)
[2023-01-05 10:35] LABS: ALBUMIN 2.8 g/dl (3.4-5.0); BLOOD UREA NITROGEN 21.9 mg/dL (7-18); CALCIUM 8.8 mg/dL (8.5-10.1); MAGNESIUM 1.9 mg/dL (1.8-2.4)
[2023-01-05 10:38] LABS: CREATININE 1.2 mg/dL (0.55-1.3)
[2023-01-05 10:39] LABS: BILIRUBIN,TOTAL 0.3 mg/dL (0.2-1); TOT PROT 7.4 g/dl (6.4-8.2)
[2023-01-05] MEDS: NIFEdipine E.R 60 MG TABLET PO SCH (10:39)
[2023-01-05] MEDS: ASPIRIN 81 MG CHEWABLE TABLETS PO SCH (10:39)
[2023-01-05] MEDS: ATENOLOL 50 MG TABLET (FP) PO SCH (10:40)
[2023-01-05] MEDS: ABACAVIR/DOLUTEGRAVIR/LAMIVUDI (TRIUMEQ) TABLET PO SCH (10:40)
[2023-01-05] MEDS: ATORVASTATIN CA 10 MG TABLET (FP) PO SCH (21:57)
[2023-01-05] MEDS: DAPTOMYCIN 750 MG in SODIUM CHLORIDE 50 ML IVPB SCH (23:02)
[2023-01-06] MEDS: MEROPENEM 1 GM in DEXTROSE 5%-WATER 100 ML IVPB SCH ×3 (02:24→18:39)
[2023-01-06] MEDS: KETOROLAC TROMETHAMINE 30 MG/1 ML VIAL IVPUSH PRN (03:04)
[2023-01-06] MEDS: BUPRENORPHINE/NALOXONE 8 MG/2 MG FILM PACKET SL SCH ×3 (05:54→22:21)
[2023-01-06] MEDS: HEPARIN NA (PORCINE) 5,000 UNITS/ML 1ML VIAL SQ SCH ×3 (05:54→22:21)
[2023-01-06 06:39] VITALS: RESP 18
[2023-01-06] MEDS: TAMSULOSIN HCL 0.4 MG CAP PO SCH (08:14)
[2023-01-06 09:03] LABS: BASO % 0.5 % (0-2.0); EOS % 2.9 % (0-4.5); HEMATOCRIT 29.2 % (35.4-49); HEMOGLOBIN 9.5 GM/dL (11.7-16.9); LYMPH % 38.8 % (8-40); MCH 30.6 pg (25.7-33.7); MCHC 32.5 g/dl (32.0-35.9); MEAN CELL VOLUME 94.1 fl (80-96); MEAN PLT VOLUME 6.7 fl (7.5-11.1); MONO % 11.7 % (3.8-10.2); NEUT % 46.1 % (42.8-82.8); PLATELET COUNT 209 10^3/uL (134-434); RBC 3.11 M/mm3 (4.00-5.60); RDW 14.4 % (11.9-15.9); WHITE BLOOD COUNT 3.4 K/mm3 (4.0-10.0)
[2023-01-06 09:17] LABS: POTASSIUM 4.3 mmol/L (3.5-5.1)
[2023-01-06 09:34] LABS: CREATININE 1.3 mg/dL (0.55-1.3)
[2023-01-06 09:35] LABS: CALCIUM 8.9 mg/dL (8.5-10.1)
[2023-01-06 09:36] LABS: BILIRUBIN,TOTAL 0.3 mg/dL (0.2-1); BLOOD UREA NITROGEN 24.7 mg/dL (7-18)
[2023-01-06 09:37] LABS: ALBUMIN 2.8 g/dl (3.4-5.0); MAGNESIUM 2.1 mg/dL (1.8-2.4); TOT PROT 7.8 g/dl (6.4-8.2)
[2023-01-06] MEDS: ATENOLOL 50 MG TABLET (FP) PO SCH (10:29)
[2023-01-06] MEDS: ASPIRIN 81 MG CHEWABLE TABLETS PO SCH (10:29)
[2023-01-06] MEDS: ABACAVIR/DOLUTEGRAVIR/LAMIVUDI (TRIUMEQ) TABLET PO SCH (10:29)
[2023-01-06] MEDS: NIFEdipine E.R 60 MG TABLET PO SCH (10:29)
[2023-01-06] MEDS: ATORVASTATIN CA 10 MG TABLET (FP) PO SCH (22:21)
[2023-01-06] MEDS: DAPTOMYCIN 750 MG in SODIUM CHLORIDE 50 ML IVPB SCH (22:50)
[2023-01-07] MEDS: DAPTOMYCIN 750 MG in SODIUM CHLORIDE 50 ML IVPB SCH (01:05)
[2023-01-07] MEDS: MEROPENEM 1 GM in DEXTROSE 5%-WATER 100 ML IVPB SCH ×2 (03:04→09:17)
[2023-01-07] MEDS ORDERED: MELATONIN 5 MG TABLETS PO ONE (03:17)
[2023-01-07] MEDS: HEPARIN NA (PORCINE) 5,000 UNITS/ML 1ML VIAL SQ SCH ×2 (06:05→13:30)
[2023-01-07] MEDS: BUPRENORPHINE/NALOXONE 8 MG/2 MG FILM PACKET SL SCH ×2 (06:05→13:31)
[2023-01-07 06:48] VITALS: BP 141/70; PULSE 74; TEMP 98
[2023-01-07 09:10] LABS: BASO % 0.7 % (0-2.0); EOS % 2.3 % (0-4.5); HEMATOCRIT 26.5 % (35.4-49); HEMOGLOBIN 8.8 GM/dL (11.7-16.9); LYMPH % 38.3 % (8-40); MCH 31.2 pg (25.7-33.7); MEAN CELL VOLUME 94.4 fl (80-96); MEAN PLT VOLUME 6.8 fl (7.5-11.1); MONO % 9.1 % (3.8-10.2); NEUT % 49.6 % (42.8-82.8); PLATELET COUNT 191 10^3/uL (134-434); RBC 2.81 M/mm3 (4.00-5.60); RDW 14.7 % (11.9-15.9); WHITE BLOOD COUNT 3.2 K/mm3 (4.0-10.0)
[2023-01-07] MEDS: TAMSULOSIN HCL 0.4 MG CAP PO SCH (09:25)
[2023-01-07] MEDS: ASPIRIN 81 MG CHEWABLE TABLETS PO SCH (09:26)
[2023-01-07] MEDS: NIFEdipine E.R 60 MG TABLET PO SCH (09:26)
[2023-01-07] MEDS: ABACAVIR/DOLUTEGRAVIR/LAMIVUDI (TRIUMEQ) TABLET PO SCH (09:26)
[2023-01-07] MEDS: ATENOLOL 50 MG TABLET (FP) PO SCH (09:26)
[2023-01-07 09:32] LABS: POTASSIUM 3.7 mmol/L (3.5-5.1)
[2023-01-07 10:13] LABS: ALBUMIN 2.9 g/dl (3.4-5.0); BLOOD UREA NITROGEN 24.4 mg/dL (7-18); CALCIUM 8.9 mg/dL (8.5-10.1); MAGNESIUM 2.1 mg/dL (1.8-2.4)
[2023-01-07 10:16] LABS: CREATININE 1.2 mg/dL (0.55-1.3)
[2023-01-07 10:18] LABS: BILIRUBIN,TOTAL 0.3 mg/dL (0.2-1); TOT PROT 7.5 g/dl (6.4-8.2)
== END 2023-01-07 16:30 | disposition home or self-care (01) | DRG 593 ==
LOC: JER 09:18 → JERBED 13:15 → J8W 20:44
PROVIDERS: ADMIT Internal Medicine; ATTEND Nurse Practitioner Family
DX: L97.909 Non-pressure chronic ulcer of unspecified part of unspecified lower leg with unspecified severity (principal); B20 Human immunodeficiency virus [HIV] disease; F11.20 Opioid dependence, uncomplicated; L03.115 Cellulitis of right lower limb; L03.116 Cellulitis of left lower limb; L97.919 Non-pressure chronic ulcer of unspecified part of right lower leg with unspecified severity; I12.9 Hypertensive chronic kidney disease with stage 1 through stage 4 chronic kidney disease, or unspecified chronic kidney disease; N18.9 Chronic kidney disease, unspecified; E66.9 Obesity, unspecified; D63.8 Anemia in other chronic diseases classified elsewhere; E78.5 Hyperlipidemia, unspecified; I87.2 Venous insufficiency (chronic) (peripheral); Z68.35 Body mass index [BMI] 35.0-35.9, adult
CPT/HCPCS: 11042; 11721; 36415; 73610-TC-RT-FY; 73630-TC-RT-FY; 80053; 82550; 83735; 84100; 85025; 85610; 85651; 85730; 86140; 86359; 86360; 86850; 86900; 86901; 87040; 87070; 87186; 87205; 87536; 93005; 93010; 97116-GP; 97161-GP; 99285-25; A6196; J0878; J1644

== ENCOUNTER 2023-12-19 11:23 | Inpatient (IN) | payer OTHER, BC ==
[2023-12-19] MEDS ORDERED: MEROPENEM 1 GM VIAL (RESTRICTED TO ID) IVPB ONE (12:23)
[2023-12-19 12:25] LABS: HEMOGLOBIN 9.9 GM/dL (11.7-16.9); MEAN PLT VOLUME 6.6 fl (7.5-11.1); MONO % 11.6 % (3.8-10.2); WHITE BLOOD COUNT 4.6 K/mm3 (4.0-10.0)
[2023-12-19 12:27] LABS: BASO % 0.4 % (0-2.0); EOS % 1.9 % (0-4.5); HEMATOCRIT 30.1 % (35.4-49); LYMPH % 22.2 % (8-40); MCH 30.1 pg (25.7-33.7); MCHC 32.8 g/dl (32.0-35.9); MEAN CELL VOLUME 91.8 fl (80-96); NEUT % 63.9 % (42.8-82.8); PLATELET COUNT 159 10^3/uL (134-434); RBC 3.27 M/mm3 (4.00-5.60); RDW 13.5 % (11.9-15.9)
[2023-12-19] MEDS: MEROPENEM 1 GM in DEXTROSE 5%-WATER 100 ML IVPB ONE (12:36)
[2023-12-19 12:49] LABS: POTASSIUM 3.8 mmol/L (3.5-5.1)
[2023-12-19 12:52] LABS: ALBUMIN 3.3 g/dl (3.4-5.0); BLOOD UREA NITROGEN 27.1 mg/dL (7-18)
[2023-12-19 12:55] LABS: CREATININE 1.4 mg/dL (0.55-1.3)
[2023-12-19 12:57] LABS: BILIRUBIN,TOTAL 0.5 mg/dL (0.2-1); TOT PROT 7.3 g/dl (6.4-8.2)
[2023-12-19 13:54] LABS: ERYTHROCYTE SEDIMENTATION RATE 101 mm/hr (0-20)
[2023-12-19] MEDS: DAPTOMYCIN 720 MG in SODIUM CHLORIDE 50 ML IVPB ONE (14:08)
[2023-12-19 17:14] VITALS: BMI 36.6
[2023-12-19] MEDS ORDERED: MEROPENEM 1 GM in DEXTROSE 5%-WATER 100 ML IVPB SCH (18:15)
[2023-12-19] MEDS: MEROPENEM 1 GM in DEXTROSE 5%-WATER 100 ML IVPB SCH ×2 (18:40→22:16)
[2023-12-19] MEDS: TAMSULOSIN HCL 0.4 MG CAP PO SCH (22:15)
[2023-12-19] MEDS: GABAPENTIN 100 MG CAPSULE PO SCH (22:15)
[2023-12-19] MEDS: ATORVASTATIN CA 10 MG TABLET (FP) PO SCH (22:15)
[2023-12-19] MEDS: BUPRENORPHINE/NALOXONE 8 MG/2 MG FILM PACKET SL SCH (22:16)
[2023-12-19] MEDS: APIXABAN 5 MG TABLET PO SCH (22:16)
[2023-12-20] MEDS: FUROSEMIDE 40 MG TABLET (FP) PO SCH (05:31)
[2023-12-20] MEDS: NIFEdipine E.R 60 MG TABLET PO SCH (09:56)
[2023-12-20] MEDS: ATENOLOL 50 MG TABLET (FP) PO SCH (09:56)
[2023-12-20] MEDS: ABACAVIR/DOLUTEGRAVIR/LAMIVUDI (TRIUMEQ) TABLET PO SCH (09:56)
[2023-12-20 13:10] LABS: BASO % 0.8 % (0-2.0); EOS % 2.5 % (0-4.5); HEMATOCRIT 32.5 % (35.4-49); HEMOGLOBIN 10.6 GM/dL (11.7-16.9); LYMPH % 30.4 % (8-40); MCHC 32.7 g/dl (32.0-35.9); MEAN CELL VOLUME 91.8 fl (80-96); MEAN PLT VOLUME 6.6 fl (7.5-11.1); MONO % 10.6 % (3.8-10.2); NEUT % 55.7 % (42.8-82.8); PLATELET COUNT 202 10^3/uL (134-434); RBC 3.54 M/mm3 (4.00-5.60); RDW 13.6 % (11.9-15.9)
[2023-12-20 13:26] LABS: POTASSIUM 3.9 mmol/L (3.5-5.1)
[2023-12-20 13:29] LABS: ALBUMIN 3.5 g/dl (3.4-5.0); BLOOD UREA NITROGEN 27.2 mg/dL (7-18)
[2023-12-20 13:30] LABS: CALCIUM 9.4 mg/dL (8.5-10.1)
[2023-12-20 13:32] LABS: CREATININE 1.3 mg/dL (0.55-1.3)
[2023-12-20 13:34] LABS: BILIRUBIN,TOTAL 0.7 mg/dL (0.2-1); TOT PROT 7.8 g/dl (6.4-8.2)
[2023-12-20 15:09] VITALS: RESP 18
[2023-12-20] MEDS: DAPTOMYCIN 700 MG in SODIUM CHLORIDE 50 ML IVPB SCH (17:30)
[2023-12-20] MEDS: MEROPENEM 1 GM in DEXTROSE 5%-WATER 100 ML IVPB SCH (18:47)
[2023-12-21 08:53] LABS: BASO % 0.5 % (0-2.0); EOS % 3.1 % (0-4.5); HEMATOCRIT 29.2 % (35.4-49); HEMOGLOBIN 9.6 GM/dL (11.7-16.9); LYMPH % 34.6 % (8-40); MCH 30.3 pg (25.7-33.7); MEAN CELL VOLUME 91.7 fl (80-96); MEAN PLT VOLUME 6.6 fl (7.5-11.1); MONO % 11.6 % (3.8-10.2); NEUT % 50.2 % (42.8-82.8); PLATELET COUNT 149 10^3/uL (134-434); RBC 3.18 M/mm3 (4.00-5.60); RDW 13.7 % (11.9-15.9); WHITE BLOOD COUNT 3.4 K/mm3 (4.0-10.0)
[2023-12-21 09:07] LABS: POTASSIUM 3.5 mmol/L (3.5-5.1)
[2023-12-21 09:15] LABS: ALBUMIN 2.9 g/dl (3.4-5.0); BLOOD UREA NITROGEN 27.3 mg/dL (7-18); CALCIUM 9.1 mg/dL (8.5-10.1); MAGNESIUM 2.2 mg/dL (1.8-2.4)
[2023-12-21 09:18] LABS: BILIRUBIN,TOTAL 0.4 mg/dL (0.2-1); CREATININE 1.2 mg/dL (0.55-1.3); PHOSPHOROUS 3.7 mg/dL (2.5-4.9); TOT PROT 6.8 g/dl (6.4-8.2)
[2023-12-21] MEDS: PNEUMOC 20-VAL CONJ-DIP CRM/PF 0.5 ML SYRINGE IM ONE (18:08)
[2023-12-22 08:38] LABS: BASO % 0.4 % (0-2.0); EOS % 2.7 % (0-4.5); HEMATOCRIT 31.3 % (35.4-49); HEMOGLOBIN 10.3 GM/dL (11.7-16.9); LYMPH % 38.1 % (8-40); MCH 30.2 pg (25.7-33.7); MCHC 33.1 g/dl (32.0-35.9); MEAN CELL VOLUME 91.5 fl (80-96); MEAN PLT VOLUME 6.8 fl (7.5-11.1); MONO % 9.4 % (3.8-10.2); NEUT % 49.4 % (42.8-82.8); PLATELET COUNT 166 10^3/uL (134-434); RBC 3.42 M/mm3 (4.00-5.60); RDW 13.6 % (11.9-15.9); WHITE BLOOD COUNT 3.8 K/mm3 (4.0-10.0)
[2023-12-22 08:59] LABS: POTASSIUM 3.8 mmol/L (3.5-5.1)
[2023-12-22 09:06] LABS: CALCIUM 9.3 mg/dL (8.5-10.1)
[2023-12-22 09:07] LABS: ALBUMIN 3.3 g/dl (3.4-5.0); BLOOD UREA NITROGEN 32.2 mg/dL (7-18); MAGNESIUM 2.1 mg/dL (1.8-2.4)
[2023-12-22 09:10] LABS: CREATININE 1.3 mg/dL (0.55-1.3); PHOSPHOROUS 4.2 mg/dL (2.5-4.9)
[2023-12-22 09:11] LABS: BILIRUBIN,TOTAL 0.4 mg/dL (0.2-1); TOT PROT 7.6 g/dl (6.4-8.2)
[2023-12-23] MEDS: CYCLOBENZAPRINE HCL 10 MG TABLET (FP) PO ONE (09:02)
[2023-12-23] MEDS: ACETAMINOPHEN 325 MG TABLET (FP) PO PRN (11:58)
[2023-12-23 14:28] VITALS: BP 110/61; PULSE 68; TEMP 97.6
== END 2023-12-23 18:19 | disposition home or self-care (01) | DRG 603 ==
LOC: JER 11:23 → JERBED 12:02 → J6S 15:50
PROVIDERS: ADMIT Internal Medicine; ATTEND Internal Medicine
PROC: 05HB33Z Insertion of Infusion Device into Right Basilic Vein, Percutaneous Approach (ICD-10-PCS; principal; 2023-12-23)
DX: L03.115 Cellulitis of right lower limb (principal); F11.20 Opioid dependence, uncomplicated; L97.518 Non-pressure chronic ulcer of other part of right foot with other specified severity; L08.9 Local infection of the skin and subcutaneous tissue, unspecified; Z21 Asymptomatic human immunodeficiency virus [HIV] infection status; I48.0 Paroxysmal atrial fibrillation; E78.00 Pure hypercholesterolemia, unspecified; I12.9 Hypertensive chronic kidney disease with stage 1 through stage 4 chronic kidney disease, or unspecified chronic kidney disease; D63.8 Anemia in other chronic diseases classified elsewhere; N18.9 Chronic kidney disease, unspecified; I89.0 Lymphedema, not elsewhere classified; E66.9 Obesity, unspecified; Z68.36 Body mass index [BMI] 36.0-36.9, adult; Z96.642 Presence of left artificial hip joint
CPT/HCPCS: 29581-LT; 29581-RT; 36415; 73590-TC-RT-FY; 73610-TC-RT-FY; 73630-TC-RT-FY; 80053; 82550; 82553; 83735; 84100; 85025; 85651; 86140; 87070; 87186; 87205; 90677; 97597; 97598; 99285-25; A6196; G0009; J0878